=== PATIENT | female | born 1945 | race Caucasian/White ===

== ENCOUNTER → 2020-10-15 13:54 | Outpatient (BNVA) | payer MEDICARE, OTHER, SELFPAY | PROVIDERS: Visit Provider Nurse Practitioner Family | DX: I10 Essential (primary) hypertension (principal); M1A.9XX0 Chronic gout, unspecified, without tophus (tophi) | CPT/HCPCS: 80053; 80061; 82607; 84443; 84550; 85025 ==

== ENCOUNTER → 2020-11-12 14:37 | Outpatient (BNVA) | payer MEDICARE, OTHER, SELFPAY | PROVIDERS: Visit Provider Nurse Practitioner Family | DX: M1A.9XX0 Chronic gout, unspecified, without tophus (tophi) (principal) | CPT/HCPCS: 80053; 84550 ==

== ENCOUNTER → 2020-12-27 13:48 | Outpatient (BNVA) | payer MEDICARE, OTHER, SELFPAY | PROVIDERS: Visit Provider Nurse Practitioner Family | DX: I10 Essential (primary) hypertension (principal); F41.9 Anxiety disorder, unspecified; M1A.9XX0 Chronic gout, unspecified, without tophus (tophi); Z68.39 Body mass index [BMI] 39.0-39.9, adult; G47.00 Insomnia, unspecified; K21.9 Gastro-esophageal reflux disease without esophagitis; E78.5 Hyperlipidemia, unspecified | CPT/HCPCS: 80053; 80061; 82306; 82607; 83735; 84443; 84550; 85025 ==

== ENCOUNTER → 2021-01-08 14:12 | Outpatient (BNVA) | payer MEDICARE, OTHER, SELFPAY | PROVIDERS: Visit Provider Nurse Practitioner Family | DX: M17.11 Unilateral primary osteoarthritis, right knee (principal); M25.561 Pain in right knee; M25.562 Pain in left knee | CPT/HCPCS: 73562 ==

== ENCOUNTER 2021-01-16 16:49 | Emergency (ER) | payer MEDICARE, OTHER, SELFPAY ==
[2021-01-16] VITALS (9 sets, daily range): BP systolic 173–204; BP diastolic 83–145; PULSE 79–105; RESP 16–20; TEMP 36.4; O2SAT 94–98; BMI 36.0
--- NOTE | 2021-01-16 18:18 | ED_ITS ---
HPI - Fall General: Chief Complaint: Fall Stated Complaint: fell, sharp h/a prior to falling Time Seen by Provider: 01/16/21 18:18 History of Present Illness: HPI Narrative: Ms. Cherry is a 75-year-old lady with history of hypertension, hyperlipidemia, psychiatric disorder who presents emergency department due to fall and memory difficulty. She reports 2 to 3-week history of subacute onset of brain fog. She endorses difficulty with memory and thought process. She has had some trouble walking with balance issues. She has had multiple falls. Today she had a sharp headache in the right temporal region which is somewhat atypical for her. No numbness, tingling, visual disturbances, photophobia, phonophobia. She subsequently had a fall without head strike or loss of consciousness. She denies specific infectious symptoms but does have generalized symptoms. Additionally she feels more shaky than normal. Overall the course of symptoms has been worsening. The intensity is moderate to severe. She denies similar episodes in the past. Review of Systems General: Reports: 10 or more systems reviewed and unremarkable except in HPI and below PFSH ED PFSH: Medical History Anxiety Hyperlipidemia Hypertension Surgical History History of resection of rib right 12th rib removal Hx of kidney removal right kidney Family History Mother , breast; age 50 Cancer Son Diabetes Denies family history of Clotting disorder Psychiatric illness Chronic kidney disease (CKD) Stroke Social History Second hand smoke exposure: No Alcohol intake: current Caregiver/support person: Yes Lives independently: Yes Household members: significant other Marital status: / Current occupational status: retired History of recent travel: Yes Details: recently moved from [place], [place] Out of state: No Out of country: No Current gender identity: Female Special luisito needs: No Agree to transfusion: Yes Physical Exam Narrative: EXAM NARRATIVE: GENERAL/CONSTITUTIONAL -mildly ill-appearing. No acute distress. Eyes - PERRL, no conjunctival injection ENMT - Atraumatic external nose and ears. Moist mucous membranes NECK - supple. trachea midline CARDIOVASCULAR - regular rate and rhythm. RESPIRATORY -clear to auscultation bilaterally. No accessory muscle use. ABDOMEN/GI - Nontender/Nondistended. MSK - Extremities without obvious deformity or tenderness to palpation SKIN - Warm, Dry NEURO - alert and appropriately oriented. Cranial nerves II through XII intact. Coordination and gait normal. Moves all extremities equally. Course ED course: - Patient was seen and evaluated by me at bedside - Patient placed on cardiac monitors, IV access obtained - Initial evaluation notable for no acute distress, nontoxic appearance. Mildly ill. No focal neurologic deficits. - Labs notable for no significant hematologic or metabolic abnormalities to explain patient's symptoms. Delta troponin negative. - Imaging notable for negative head CT and chest x-ray - Upon serial reexamination after treatment the patient was similar - Based on patient history, evaluation, labs, and imaging as interpreted the most likely cause of the patient's condition is unclear. Onset of symptoms this rapidly is somewhat atypical of something like dementia however certainly a consideration. I recommended follow-up with PCP for further neurocognitive evaluation. Given no focal neurologic deficits and headache within [address] imaging no additional imaging or vessel imaging warranted. - The results of ED evaluation were discussed with the patient including prescriptions and/or symptomatic cares (if applicable) including appropriate and responsible use, followup plan, and return precautions. The patient verbalized understanding and felt safe for discharge. - Patient discharged in satisfactory condition. Vital Signs: Vital signs: Vital Signs Temperature 97.6 F 01/16/21 17:16 Pulse Rate 79 01/16/21 21:26 Respiratory Rate 19 H 01/16/21 21:26 Blood Pressure 194/106 01/16/21 21:26 Pulse Oximetry 96 01/16/21 21:26 MDM - Fall Medical Records: Attestation: I reviewed the patient's medical records. Lab Data: Attestation: I reviewed the patient's lab results. Labs: Lab Results 01/16/21 01/16/21 01/16/21 18:30 18:30 18:30 WBC 8.5 10^3/uL 10^3/ uL (4.0-10.0) RBC 4.52 10^6/uL 10^6 /uL (4.1-5.3) Hgb 13.0 g/dL g/dL (11.5-15.3) Hct 40.9 % % (37.0-47.0) MCV 90.5 fl fl (81-99) MCH 28.8 pg pg (28.0-34.0) MCHC 31.8 g/dL g/dL (30.0-36.0) RDW 14.8 % % (12.1-15.1) Plt Count 261 10^3/cmm 10^3 /cmm (130-400) MPV 9.6 fL fL (7.4-10.4) Neut % (Auto) 65.1 % % Lymph % (Auto) 20.9 % % Wayne % (Auto) 9.0 % % Eos % (Auto) 3.5 % % Baso % (Auto) 1.1 % % Neut # (Auto) 5.52 10^3/uL 10^3 /uL (1.8-7.7) Lymph # (Auto) 1.8 10^3/uL 10^3/ uL (0.8-4.8) Wayne # (Auto) 0.8 10^3/uL 10^3/ uL (0.2-0.9) Eos # (Auto) 0.3 10^3/uL 10^3/ uL (0.0-0.8) Baso # (Auto) 0.1 10^3/uL 10^3/ uL (0.0-0.1) Nucleated RBC % (a uto) 0 % % Nucleated RBCs # 0.0 /100WBC /100W BC Sodium 136 mmol/L mmol/L (136-145) Potassium 4.4 mmol/L mmol/L (3.5-5.1) Chloride 102 mmol/L mmol/L (98-107) Carbon Dioxide 25 mmol/L mmol/L (22-29) Anion Gap 13.4 (5-19) BUN 25 mg/dL H mg/dL (8-23) Creatinine 1.0 mg/dL H mg/dL (0.5-0.9) GFR Calculation Not Reportable Glucose 78 mg/dL mg/dL (65-115) Calculated Osmolal ity 285 mOsm/kg mOsm/ kg (285-295) Calcium 8.7 mg/dL mg/dL (8.5-10.5) Total Bilirubin 0.3 mg/dL mg/dL (0.15-1.2) AST 22 U/L U/L (0-32) ALT 13 U/L U/L (0-33) Alkaline Phosphata se 151 IU/L H IU/L (35-105) Troponin T Baselin e 16 ng/L H ng/L (0-10) Troponin T 120 Min [place] Delta Troponin T Total Protein 7.1 g/dL g/dL (6.6-8.7) Albumin 4.0 g/dL g/dL (3.5-5.2) Globulin 3.1 g/dL g/dL (1.3-4.6) TSH 1.65 uIU/mL uIU/m L (0.27-4.20) Urine Color Urine Appearance Urine pH Ur Specific Gravit y Urine Protein Urine Glucose (UA) Urine Ketones Urine Blood Urine Nitrate Urine Bilirubin Urine Urobilinogen Ur Leukocyte Caroline ase Urine RBC Urine WBC Ur Squamous Epith Cells Amorphous Sediment Urine Bacteria 01/16/21 01/16/21 19:14 20:20 WBC RBC Hgb Hct MCV MCH MCHC RDW Plt Count MPV Neut % (Auto) Lymph % (Auto) Wayne % (Auto) Eos % (Auto) Baso % (Auto) Neut # (Auto) Lymph # (Auto) Wayne # (Auto) Eos # (Auto) Baso # (Auto) Nucleated RBC % (a uto) Nucleated RBCs # Sodium Potassium Chloride Carbon Dioxide Anion Gap BUN Creatinine GFR Calculation Glucose Calculated Osmolal ity Calcium Total Bilirubin AST ALT Alkaline Phosphata se Troponin T Baselin e Troponin T 120 Min [place] 14.68 ng/L H ng/L (0-10) Delta Troponin T -1.32 ABS# L ABS# (0-10) Total Protein Albumin Globulin TSH Urine Color Straw (Yellow) Urine Appearance Clear (CLEAR) Urine pH 6 (5-7) Ur Specific Gravit y 1.010 (1.005-1.030) Urine Protein Neg (Negative) Urine Glucose (UA) Norm (Normal) Urine Ketones Negative (Negative) Urine Blood Neg (Negative) Urine Nitrate Negative (Negative) Urine Bilirubin Neg (Negative) Urine Urobilinogen Norm mg/dL mg/dL (Negative) Ur Leukocyte Caroline ase Trace H (Negative) Urine RBC None /hpf /hpf (0-2) Urine WBC None /hpf /hpf (0-5) Ur Squamous Epith Cells Rare /hpf /hpf (0-5) Amorphous Sediment Not Reportable Urine Bacteria None /hpf /hpf (NONE) EKG Data^: EKG 1: Attestation: I personally reviewed and interpreted this EKG as follows: EKG interpretation date: 01/16/21 EKG interpretation time: 18:51 Interpretation: Twelve-lead EKG shows a regular rhythm at a rate of 81. NV interval 171, QRS duration 96, QTc 398. Borderline axis. Interpretation: Sinus rhythm. Discharge Plan Discharge Patient Disposition: Home Clinical Impression: Memory changes, Hypertension, Falls, Malaise and fatigue Condition: Stable Prescriptions: No Action meloxicam 15 mg tablet 15 mg PO DAILY Qty: 14 RF: 0 atorvastatin 40 mg tablet 40 mg PO DAILY Qty: 90 RF: 1 gabapentin 300 mg capsule 300 mg PO DAILY Qty: 90 RF: 1 hydrochlorothiazide 12.5 mg tablet 12.5 mg PO QAM Qty: 90 RF: 1 lisinopril 20 mg tablet 20 mg PO DAILY Qty: 90 RF: 1 metoprolol tartrate 25 mg tablet 25 mg PO DAILY Qty: 90 RF: 1 venlafaxine 75 mg tablet extended release 24hr 75 mg PO DAILY Qty: 90 RF: 1 venlafaxine 150 mg capsule,extended release 24hr 150 mg PO DAILY Qty: 90 RF: 1 quetiapine 100 mg tablet 100 mg PO DAILY Qty: 90 RF: 1 trazodone 100 mg tablet 100 mg PO DAILY Qty: 90 RF: 1 omeprazole 40 mg capsule,delayed release(DR/EC) 40 mg PO DAILY Qty: 90 RF: 1 ergocalciferol (vitamin D2) 1,250 mcg (50,000 unit) capsule 1,250 mcg PO .weekly Qty: 4 RF: 2 allopurinol 100 mg tablet 200 mg PO DAILY Qty: 90 RF: 1 Discharge Orders: Discharge ED (Routine); Ordered 01/16/21 Ordered By: Ruy Tejeda Referrals: Sabi Beckman MD [Primary Care Provider] - Discharge Diet: Usual diet Discharge Activity: Resume usual activity Patient Instructions: Fall Prevention for Older Adults (ED), Fatigue (ED) Activity Restrictions/Additional Instructions: Thank you for visiting the emergency department. You were seen and evaluated for headache, falls, memory changes, and generalized malaise. The exact cause of your symptoms is unclear as no significant abnormality to explain your symptoms was found on imaging or labs. Please follow-up with your primary care provider. Please return the emergency department for anything that you are concerned about and feel needs emergency department evaluation. Coding Level of Care Code ED Contact Printer [employer] for Brandy George
--- NOTE | 2021-01-16 18:29 | XRR_ITS ---
PROCEDURE INFORMATION: Exam: XR Chest Exam date and time: 01/16/2021 6:29 PM Age: 75 years old Clinical indication: Other: Weakness, fatigue; Prior surgery; Surgery type: Right kidney and rib removed; Additional info: Weakness, fatigue, AMS TECHNIQUE: Imaging protocol: XR of the chest. Views: 1 view. Total images: 1 COMPARISON: No relevant prior studies available. FINDINGS: Lungs: No visible active interstitial or alveolar airspace disease. Pleural spaces: No pleural effusion. No pneumothorax. Heart/Mediastinum: Large hiatal hernia. Cardiac structures and configuration with cardiac size upper limits of normal and arteriosclerosis. Bones/joints: Unremarkable as visualized. Other findings: Obesity. XR/XR chest 1V portable [id number] IMPRESSION: Nonacute. Radiation Dose CTDIVOL = (mGy): DLP = (mGy-cm)
--- NOTE | 2021-01-16 18:29 | CTR_ITS ---
PROCEDURE INFORMATION: Exam: CT Head Without Contrast Exam date and time: 01/16/2021 6:29 PM Age: 75 years old Clinical indication: Pain; Altered mental status/memory loss; Headache; Additional info: AMS, headache TECHNIQUE: Imaging protocol: Computed tomography of the head without contrast. Total images: 202 Radiation optimization: All CT scans at this facility use at least one of these dose optimization techniques: automated exposure control; mA and/or kV adjustment per patient size (includes targeted exams where dose is matched to clinical indication); or iterative reconstruction. COMPARISON: No relevant prior studies available. RADIATION DOSE METRICS: Total DLP (mGy-cm): 899.38 FINDINGS: Brain: No evidence of active or acute intracranial pathologic process, hemorrhage, or trauma. Moderate small vessel ischemic disease with senile periventricular leukomalacia. No hyperdense MCA or insular ribbon sign. No mass effect. No midline shift. Atrophic changes not inconsistent with the patient's chronological age. Cerebral arteriosclerosis. Cerebral ventricles: No ventriculomegaly. Paranasal sinuses: Visualized sinuses are unremarkable. No fluid levels. Mastoid air cells: Visualized mastoid air cells are well aerated. Bones/joints: Unremarkable. No acute fracture. Soft tissues: Unremarkable. CT/CT head wo con* [id number] IMPRESSION: No evidence of active or acute intracranial pathologic process, hemorrhage, or trauma. Radiation Dose CTDIVOL = (mGy): DLP = 899.38 (mGy-cm)
--- NOTE | 2021-01-16 18:30 | ECG_ITS ---
[facility] Test Date: 2021-01-16 Pat Name: Abby Cherry Department: Room: Gender: Female Mandrel Maker: : 1945 Requested By: Ruy Tejeda Order Number: [id number] Karlos MD: Seven Hawkins M.D. Measurements Intervals [place] Rate: 81 P: 11 MS: 171 QRS: 99 QRSD: 96 T: 52 QT: 361 QTc: 419 Interpretive Statements SINUS RHYTHM BORDERLINE RIGHT AXIS DEVIATION [QRS AXIS > 90] PATTERN CONSISTENT WITH PULMONARY DISEASE No previous ECG available for comparison Electronically Signed On 01-17-2021 18:38:25 CDT by Seven Hawkins M.D. [id number]
[2021-01-16 18:37] LABS: Basophils # 0.1 10^3/uL (0.0-0.1); Basophils % 1.1 %; Eosinophils # 0.3 10^3/uL (0.0-0.8); Eosinophils % 3.5 %; Hematocrit 40.9 % (37.0-47.0); Lymphocytes # 1.8 10^3/uL (0.8-4.8); Lymphocytes % 20.9 %; Mean Corpuscular HGB Conc 31.8 g/dL (30.0-36.0); Mean Corpuscular Hemoglobin 28.8 pg (28.0-34.0); Mean Corpuscular Volume 90.5 fl (81-99); Mean Platelet Volume 9.6 fL (7.4-10.4); Monocytes # 0.8 10^3/uL (0.2-0.9); Neutrophils # 5.52 10^3/uL (1.8-7.7); Neutrophils % 65.1 %; Nucleated Red Blood Cells % 0 %; Platelet Count 261 10^3/cmm (130-400); Red Blood Count 4.52 10^6/uL (4.1-5.3); Red Cell Distribution Width 14.8 % (12.1-15.1); White Blood Count 8.5 10^3/uL (4.0-10.0)
[2021-01-16 19:17] LABS: Troponin(5th) Baseline 16 ng/L (0-10)
[2021-01-16 19:25] LABS: Alanine Aminotransferase 13 U/L (0-33); Alkaline Phosphatase 151 IU/L (35-105); Blood Urea Nitrogen 25 mg/dL (8-23); Calcium 8.7 mg/dL (8.5-10.5); Carbon Dioxide 25 mmol/L (22-29); Chloride 102 mmol/L (98-107); Globulin 3.1 g/dL (1.3-4.6); Glucose 78 mg/dL (65-115); Osmolality Calculated 285 mOsm/kg (285-295); Sodium 136 mmol/L (136-145); Thyroid Stimulating Hormone 1.65 uIU/mL (0.27-4.20); Total Bilirubin 0.3 mg/dL (0.15-1.2); Total Protein 7.1 g/dL (6.6-8.7)
[2021-01-16 19:26] LABS: Anion Gap 13.4 (5-19); Aspartate Amino Transferase 22 U/L (0-32); Potassium 4.4 mmol/L (3.5-5.1)
[2021-01-16 19:58] LABS: Add Urine Microscopic? YES; Bilirubin Urine Neg (Negative); Blood Urine Neg (Negative); Glucose Urine UA Norm (Normal); Ketones Urine Negative (Negative); Leukocyte Esterase Urine Trace (Negative); Nitrate Urine Negative (Negative); Protein Urine Neg (Negative); Squamous Epithelial Cell Urine RARE /hpf (0-5); Urine Appearance Clear (CLEAR); Urine Color Straw (Yellow); Urobilinogen Urine Norm (Negative); pH Urine 6 (5-7)
[2021-01-16] MEDS: lisinopril 10 mg Tablet 20 MG PO (20:17)
[2021-01-16] MEDS: acetaminophen 500 mg Tablet 1000 MG PO (20:55)
[2021-01-16 20:58] LABS: Troponin 5 2HR 14.68 ng/L (0-10)
[2021-01-16 20:59] LABS: Troponin 5 2HR Delta -1.32 ABS# (0-10)
== END 2021-01-16 21:27 | disposition home or self-care (01) ==
PROVIDERS: Emergency Provider Emergency Medicine; PCP Family Medicine
DX: R53.81 Other malaise (principal); R53.83 Other fatigue; I10 Essential (primary) hypertension; R29.6 Repeated falls; R41.3 Other amnesia; E78.5 Hyperlipidemia, unspecified; Z90.5 Acquired absence of kidney
CPT/HCPCS: 36415; 70450; 71045; 80053; 81001; 84443; 84484; 85025; 93005; 99284

== ENCOUNTER 2021-01-27 06:23 | Observation (INO) | payer MEDICARE, OTHER, SELFPAY ==
[2021-01-27] VITALS (14 sets, daily range): BP systolic 110–187; BP diastolic 66–104; PULSE 0–86; RESP 16–18; TEMP 36.4–36.8; O2SAT 92–95; BMI 39.4; BMI 41.1
--- NOTE | 2021-01-27 07:17 | XR_ITS ---
WS: [id number] PORTABLE CHEST HISTORY: dyspnea/cough COMPARISON: 01/16/2021 Minimal areas of atelectasis at the lung bases. No pneumonia. Normal pulmonary vasculature. No pleura l effusion or pneumothorax. Cardiac size: Normal. Mediastinum/Aorta: Mild atherosclerosis aorta. Large hiatal hernia. Mild osteopenia with degenerative changes at the shoulder joints. XR/XR chest 1V portable [id number] IMPRESSION: 1. Mild atherosclerosis aorta. 2. Very minimal subsegmental atelectasis at the lung bases. 3. Large hiatal hernia.
--- NOTE | 2021-01-27 07:18 | W.ED.GENADLT ---
HPI - General Adult General: Chief complaint: General Medical Stated complaint: possible TIA, high BP Time Seen by Provider: 01/27/21 06:29 History of Present Illness: HPI narrative: 75-year-old female presents emergency room complaining of generally not feeling well. She states she woke up earlier this morning and her left forearm was numb, word finding difficulty.. Her blood pressure is elevated. She has a history of a previous right nephrectomy. She has a history of hypertension as well. She has not taken her morning blood pressure medications no other recent medication changes states that she has been coughing a little bit short of breath lately. She denies any chest pain at this time. Currently she has no numbness in her arm. She never had any difficulty with speech or swallowing. For the last 4 months she has not been able to walk normally has severe weakness in her legs and is only able to transfer. Onset (ago): unknown Location: left and upper extremity Severity: mild Relieving factors: none Associated symptoms: Deny chest pain, confusion, cough, diaphoresis, decreased appetite, dyspnea, fevers/chills, headache(s), malaise, nausea, rash, palpitations, seizures, short of breath, syncope, vomiting or weakness Treatments prior to arrival: none Review of Systems Const: Denies: malaise or diaphoresis ENMT: Denies: throat pain, ear or mastoid pain, nasal discharge or nasal congestion Card: Denies: chest pain, palpitations or syncope Resp: Denies: dyspnea GI: Denies: nausea or vomiting : Denies: flank pain, difficulty voiding, dysuria, urinary frequency or urinary urgency Skin/Breast: Denies: rash Neuro: Denies: headache(s) or confusion PFSH ED PFSH: Medical History Anxiety Hyperlipidemia Hypertension Obesity Surgical History History of resection of rib right 12th rib removal Hx of kidney removal right kidney Family History Mother , breast; age 50 Cancer Son Diabetes Denies family history of Clotting disorder Psychiatric illness Chronic kidney disease (CKD) Stroke Social History (Reviewed 01/31/21 @ 06:49 by SERGEI Gutierrez Second hand smoke exposure: No Alcohol intake: current Caregiver/support person: Yes Lives independently: Yes Household members: significant other Marital status: / Current occupational status: retired History of recent travel: Yes Details: recently moved from [place], [place] Out of state: No Out of country: No Current gender identity: Female Special luisito needs: No Agree to transfusion: Yes Physical Exam Const: COMMON NORMALS: no acute distress GENERAL APPEARANCE: cooperative and comfortable ORIENTATION/CONSCIOUSNESS: Yes awake, Yes oriented to person, Yes oriented to place and Yes oriented to time HENMT: COMMON NORMALS: normocephalic, atraumatic, hearing grossly normal bilaterally, external ears normal, EAC's normal, TM's normal bilaterally, Normal nasal mucous membranes and turbinates present, moist oral mucous membranes and oropharynx normal HEAD & SCALP: normocephalic and atraumatic NOSE: Normal nasal mucous membranes and turbinates present EXTERNAL EAR: Yes external ears normal EXTERNAL AUDITORY CANAL: EAC's normal TYMPANIC MEMBRANE: TM's normal bilaterally Eye: COMMON NORMALS: Equal, round and reactive pupils present, EOMs intact bilaterally, conjunctivae normal and no scleral icterus CONJUNCTIVA: Yes conjunctivae normal PUPIL: Yes Equal, round and reactive pupils present OTHER: Patient does seem to have some loss of field of vision bilaterally. However it is inconsistent on exam and at times even when the object is directly in front of her she will states she cannot see it but at the same distance she is able to count number of fingers shown to her accurately. Neck/C-Spine: COMMON NORMALS: no JVD Resp: COMMON NORMALS: normal respiratory effort, No retractions, No use of accessory muscles and clear to auscultation bilaterally AUSCULTATION: clear to auscultation bilaterally Cardio: COMMON NORMALS: no JVD, regular rate, regular rhythm and No murmurs present (Cardio) RATE: regular rate RHYTHM: regular rhythm GI: COMMON NORMALS: Soft to palpation and No hepatosplenomegaly present AUSCULTATION: Yes normoactive bowel sounds PALPATION: Yes Soft to palpation, No Tenderness to palpation present (GI), No Guarding due to palpation present (GI) and Yes No hepatosplenomegaly present Extremity: COMMON NORMALS: normal to inspection, capillary refill normal, no clubbing, cyanosis or edema, no calf tenderness and no pedal edema Neuro: SENSORIUM/ORIENTATION: Yes oriented to person, Yes oriented to place and Yes oriented to time Skin: COMMON NORMALS: no rashes or lesions noted GENERAL SKIN EXAM: no rashes or lesions noted Course ED course: Discussed with hospitalist. Patient has no lacunar infarct in the internal capsule. Neurologic exam does not show anything acute the visual field deficits do not seem consistent in the note think these are necessarily involved given the location of the area of concern on imaging. Discussed with hospitalist will go ahead and admit evaluate for potential causes and interventions. Labs and imaging reviewed as found on the chart. EKG reviewed as well. No acute changes. Vital Signs: Vital signs: Vital Signs Temperature 97.7 F 01/28/21 13:38 Pulse Rate 87 01/28/21 13:38 Respiratory Rate 18 01/28/21 13:38 Blood Pressure 121/73 01/28/21 13:38 Pulse Oximetry 92 01/28/21 13:38 [facility] - General Adult Lab Data: Labs: Lab Results 01/27/21 01/27/21 01/27/21 08:25 08:25 08:25 WBC 8.8 10^3/uL 10^3/ uL (4.0-10.0) RBC 4.64 10^6/uL 10^6 /uL (4.1-5.3) Hgb 13.5 g/dL g/dL (11.5-15.3) Hct 43.9 % % (37.0-47.0) MCV 94.6 fl fl (81-99) MCH 29.1 pg pg (28.0-34.0) MCHC 30.8 g/dL g/dL (30.0-36.0) RDW 14.8 % % (12.1-15.1) Plt Count 316 10^3/cmm 10^3 /cmm (130-400) MPV 9.4 fL fL (7.4-10.4) Neut % (Auto) 70.8 % % Lymph % (Auto) 16.6 % % Child[place] % (Auto) 7.6 % % Eos % (Auto) 3.3 % % Baso % (Auto) 1.0 % % Neut # (Auto) 6.21 10^3/uL 10^3 /uL (1.8-7.7) Lymph # (Auto) 1.5 10^3/uL 10^3/ uL (0.8-4.8) Childress # (Auto) 0.7 10^3/uL 10^3/ uL (0.2-0.9) Eos # (Auto) 0.3 10^3/uL 10^3/ uL (0.0-0.8) Baso # (Auto) 0.1 10^3/uL 10^3/ uL (0.0-0.1) Nucleated RBC % (a uto) 0 % % Nucleated RBCs # 0.0 /100WBC /100W BC Sodium 140 mmol/L mmol/L (136-145) Potassium 4.9 mmol/L mmol/L (3.5-5.1) Chloride 104 mmol/L mmol/L (98-107) Carbon Dioxide 24 mmol/L mmol/L (22-29) Anion Gap 16.9 (5-19) BUN 18 mg/dL mg/dL (8-23) Creatinine 1.1 mg/dL H mg/dL (0.5-0.9) GFR Calculation Not Reportable Glucose 110 mg/dL mg/dL (65-115) Calculated Osmolal ity 293 mOsm/kg mOsm/ kg (285-295) Calcium 9.8 mg/dL mg/dL (8.5-10.5) Vitamin B12 874 pg/mL pg/mL (232-1245) Discharge Plan Discharge Patient Disposition: Admitted As Inpatient Admit Provider: Caesar Rosenbaum Clinical Impression: CVA (cerebral vascular accident), Bilateral knee pain, Recurrent falls, Hypertension, GERD (gastroesophageal reflux disease) Condition: Stable Discharge Diet: Cardiac Discharge Activity: Increase activity as tolerated Coding Level of Care Code ED Continuous [employer] Supervisor for Brandy George NIH stroke score NIHSS Level Of Consciousness - 1a: 0 Level Of Consciousness Questions - 1b: Both Correct Level Of Consciousness Commands - 1c: Both Correct Best Gaze - 2: Normal Visual Cardoza - 3: No Visual Loss Facial Palsy - 4: Normal Motor Arm Right - 5: No Drift Motor Arm Left - 5: No Drift Motor Leg Right - 6: No Drift Motor Leg Left - 6: No Drift Limb Ataxia - 7: Absent Sensory - 8: Normal Best Language - 9: No Aphasia Dysarthia - 10: Normal Extinction And Inattention - 11: 0 Score Total Score: 0
[2021-01-27] MEDS: lisinopril 20 mg Tablet PO ×2 (07:24→20:41)
[2021-01-27] MEDS: hydroCHLOROthiazide 25 mg Tablet 12.5 MG PO ×2 (07:24→20:40)
[2021-01-27] MEDS: metoprolol succinate ER (24 HR) 25 mg Tablet PO (07:24)
--- NOTE | 2021-01-27 07:26 | PC.NURSE ---
Assumed care of pt at this time from Henny YAN.
[2021-01-27] MEDS: metoprolol tartrate 1 mg/1 mL SDV 5 mL 2.5 MG IVP (07:30)
--- NOTE | 2021-01-27 07:54 | PC.NURSE ---
ERP aware of pt's NIHSS score and that pt is complaining of left sided decreased sensation of her arm and leg. No new orders rec'd.
[2021-01-27 08:37] LABS: Basophils # 0.1 10^3/uL (0.0-0.1); Eosinophils # 0.3 10^3/uL (0.0-0.8); Eosinophils % 3.3 %; Hematocrit 43.9 % (37.0-47.0); Hemoglobin 13.5 g/dL (11.5-15.3); Lymphocytes # 1.5 10^3/uL (0.8-4.8); Lymphocytes % 16.6 %; Mean Corpuscular HGB Conc 30.8 g/dL (30.0-36.0); Mean Corpuscular Hemoglobin 29.1 pg (28.0-34.0); Mean Corpuscular Volume 94.6 fl (81-99); Mean Platelet Volume 9.4 fL (7.4-10.4); Monocytes # 0.7 10^3/uL (0.2-0.9); Monocytes % 7.6 %; Neutrophils # 6.21 10^3/uL (1.8-7.7); Neutrophils % 70.8 %; Nucleated Red Blood Cells % 0 %; Platelet Count 316 10^3/cmm (130-400); Red Blood Count 4.64 10^6/uL (4.1-5.3); Red Cell Distribution Width 14.8 % (12.1-15.1); White Blood Count 8.8 10^3/uL (4.0-10.0)
--- NOTE | 2021-01-27 08:46 | CT_ITS ---
WS: [id number] CT HEAD NONCONTRAST HISTORY: left arm numbness TECHNIQUE: Contiguous axial imaging performed through the brain in 2.5 mm imaging. Bone and soft tiss ue windows. Sagittal and coronal reformats reviewed. All CT scans at [facility] use at least one of these dose optimization techniques: automated exposure control; mA and/or kV adjustment per pa tient size (includes targeted exams where dose is matched to clinical indication); or iterative recon struction. DLP: 924.99 mGy.cm COMPARISON: 01/16/2021 No acute intracranial hemorrhage, midline shift or mass effect. Moderate atrophy. Subacute infarct is suspected involving the anterior limb of the RIGHT internal cap frandy. There is an area of decreased attenuation which has progressed since the prior study of 021. No acute hemorrhage. Additional ischemic changes and lacunar infarcts in the white matter. Ventricles: Normal size with no hydrocephalus. No inferior displacement of the cerebellar tonsils. Paranasal sinuses: As visualized are clear. Mastoid air cells: Well pneumatized. Calvarium and scalp: Skull is intact with no soft tissue edema or swelling. Extensive atherosclerosis within the intracranial carotid arteries. CT/CT head wo con* [id number] IMPRESSION: 1. No acute intracranial hemorrhage or edema. 2. Subacute lacunar infarct anterior limb of the RIGHT internal capsule. Progr essed and more obvious as compared to 01/16/2021. 3. There is additional atrophy and chronic ischemic disease and lacunar infarc ts which are stable.
[2021-01-27 09:05] LABS: Anion Gap 16.9 (5-19); Blood Urea Nitrogen 18 mg/dL (8-23); Calcium 9.8 mg/dL (8.5-10.5); Carbon Dioxide 24 mmol/L (22-29); Chloride 104 mmol/L (98-107); Glucose 110 mg/dL (65-115); Osmolality Calculated 293 mOsm/kg (285-295); Potassium 4.9 mmol/L (3.5-5.1); Sodium 140 mmol/L (136-145)
--- NOTE | 2021-01-27 09:13 | PC.NURSE ---
Pt taken to CT at this time.
--- NOTE | 2021-01-27 09:55 | PC.NURSE ---
Pt complaining of black spots in her vision in her left eye. ERP notified. No verbal orders given to nurse at this time.
--- NOTE | 2021-01-27 11:04 | PC.NURSE ---
Pt reports no change in condition.
--- NOTE | 2021-01-27 11:15 | MR_ITS ---
WS: [id number] MRI BRAIN WITH AND WITHOUT CONTRAST HISTORY: acute CVA COMPARISON: CT head 01/27/2021 and 01/16/2021 TECHNIQUE: Multiplanar imaging performed through the brain with MultiHance 20 ml's IV. No acute infarcts are seen. Bush-white matter differentiation is well preserved. Extensive confluent and patchy chronic microvascular ischemic white matter changes. No associated hemorrhage. No acute di ffusion-weighted abnormality. Increased signal in the bowen bilaterally. Ventricles and extra-axial spaces are normal. Empty sella turcica. Postcontrast images are negative for masses or vascular malformations. Postcontrast sequences are welch ited by motion artifact. There is significant motion artifact on the postcontrast images. Dural venous sinuses are normal. Paranasal sinuses: Well aerated with no significant disease. Mastoid air cells: Normal. Calvarium and scalp: Normal. MR/MR head wo/w con [id number] IMPRESSION: 1. No acute infarct identified. No hemorrhage. 2. Postcontrast imaging is significantly limited by motion artifact. No large enhancing masses. 3. Severe bilateral diffuse chronic microvascular ischemic disease within the supratentorial white matter and also within the bowen bilaterally.
--- NOTE | 2021-01-27 11:23 | P.HP_ITS ---
Providers/Chief Complaint Primary Care Provider: Sabi Beckman MD Chief Complaint: possible TIA, high BP History of Present Illness Abby Cherry is a 75 year old female who presented to the emergency department with concerns of difficulty finding the correct word to use, frequent falls over the last week. This morning her left forearm was numb. Significant other is with her as well and reports she has had memory problems for a little bit longer. Patient reports she just cannot seem to pick her feet up and has trouble with her strength. She denies any loss of sensation. She reports she does have significant arthritis which impairs her as well. She has been using a wheelchair a lot lately secondary to her decrease in mobility. She has not had any fevers. No difficulty swallowing. Was seen in the emergency department on January 16with complaint of brain fog for 2 to 3 weeks with memory difficulties and falling. She reports no major injury with falls, and believes she is fallen about 3 times in the last week. No headache. The emergency department physician is worried regarding her vision. Review of Systems General: Reports: 10 or more systems reviewed and unremarkable except in HPI and below Const: Denies: fever(s) Eyes: Reports: change in vision ENMT: Denies: throat pain Card: Denies: chest pain Resp: Denies: dyspnea GI: Denies: abdominal pain : Denies: flank pain Musc: Denies: neck pain Skin/Breast: Denies: rash Neuro: Reports: numbness in extremities, weakness in extremities, difficulty walking and frequent falls; Denies: headache(s) Psych: Reports: anxiety and depression Endo: Denies: polyuria Vito/Lymph: Denies: easy bruising All/Imm: Denies: urticaria Medications/Allergies Home Medications Medication Instructions Recorded Confirmed Last Taken Type atorvastatin 40 mg tablet 40 mg PO DAILY #90 tab 12/27/20 01/08/21 Unknown Rx gabapentin 300 mg capsule 300 mg PO DAILY #90 cap 12/27/20 01/08/21 Unknown Rx hydrochlorothiazide 12.5 mg tablet 12.5 mg PO QAM #90 tab 12/27/20 01/08/21 Unknown Rx lisinopril 20 mg tablet 20 mg PO DAILY #90 tab 12/27/20 01/08/21 Unknown Rx metoprolol tartrate 25 mg tablet 25 mg PO DAILY #90 tab 12/27/20 01/08/21 Unknown Rx omeprazole 40 mg capsule,delayed 40 mg PO DAILY #90 cap 12/27/20 01/08/21 Unknown Rx release quetiapine 100 mg tablet 100 mg PO DAILY #90 tab 12/27/20 01/08/21 Unknown Rx trazodone 100 mg tablet 100 mg PO DAILY #90 tab 12/27/20 01/08/21 Unknown Rx venlafaxine 150 mg 150 mg PO DAILY #90 cap 12/27/20 01/08/21 Unknown Rx capsule,extended release 24 hr venlafaxine 75 mg tablet,extended 75 mg PO DAILY #90 tab 12/27/20 01/08/21 Unknown Rx release 24 hr allopurinol 100 mg tablet 200 mg PO DAILY #90 tab 01/01/21 01/08/21 Unknown Rx ergocalciferol (vitamin D2) 1,250 1,250 mcg PO .weekly #4 cap 01/01/21 01/08/21 Unknown Rx mcg (50,000 unit) capsule diclofenac sodium 1 % topical gel 4 g TOPICAL QID #100 g 01/23/21 Unknown Rx meloxicam 15 mg tablet See Rx Instructions .ROUTE 01/23/21 Unknown Rx .COMPLEX #14 tab Allergies Allergy/AdvReac Type Severity Reaction Status Date / Time Sulfa (Sulfonamide Allergy ADR-Gastrointestinal Verified 01/08/21 13:29 Antibiotics) Upset PFSH Acute PFSH: Medical History (Updated 01/27/21 @ 11:38 by Caesar Rosenbaum MD) Anxiety Hyperlipidemia Hypertension Obesity Surgical History History of resection of rib right 12th rib removal Hx of kidney removal right kidney Family History Mother , breast; age 50 Cancer Son Diabetes Denies family history of Clotting disorder Psychiatric illness Chronic kidney disease (CKD) Stroke Social History Second hand smoke exposure: No Alcohol intake: current Caregiver/support person: Yes Lives independently: Yes Household members: significant other Marital status: / Current occupational status: retired History of recent travel: Yes Details: recently moved from [place], [place] Out of state: No Out of country: No Current gender identity: Female Special luisito needs: No Agree to transfusion: Yes Vitals/I&O/Wt Last Vital Signs Temp 97.8 F 01/27/21 06:25 Pulse 77 01/27/21 11:03 Resp 18 01/27/21 11:03 BP 173/94 01/27/21 11:03 Pulse Ox 94 01/27/21 11:03 Weight last 48 hrs Weight 104.326 kg Physical Exam Narrative: EXAM NARRATIVE: General exam is a white female, who appears to have some word finding difficulties but when discussing something familiar with her it appears to resolve. Skin no rash Neuro: I cannot elicit any focal deficits. No obvious cerebellar function. Sensation to lower extremities appeared intact. I agree with the emergency department assessment of 0 on NIH score. HEENT: Atraumatic and normocephalic. Pupils equally round. Difficulty getting her to participate adequately in peripheral vision evaluation, but when refocu sed she seems to be able to count fingers and not have any deficits. Neck is supple no lymphadenopathy or thyromegaly Cardiovascular regular rate and rhythm without murmur Lungs clear no wheezing or crackles Abdomen is soft, positive bowel sounds. No obvious organomegaly. exam is deferred Extremities no cyanosis clubbing or edema, cap refill brisk Data : 01/27/21 08:25 01/27/21 08:25 Other data: Recent LFTs done on January 16 normal. Alk phos slightly elevated at 151. TSH recently done normal. Recent normal urinalysis. CT head subacute CVA anterior limb right internal capsule, noted on previous exam but not as obvious. Chronic ischemic disease/lacunar infarcts are also noted. Chest x-ray hiatal hernia, atherosclerotic disease, no infiltrate Previous EKG normal sinus rhythm, borderline right axis deviation, no acute changes A&P Assessment and plan (1) CVA (cerebral vascular accident): Lacunar infarct, internal capsule Neurologic exam not consistent Check carotid ultrasound, echocardiogram, MRI with and without contrast Telemetry Aspirin, statin Secondary to substrate of other lacunar infarcts may need better blood pressure control At this point she is much over 2 days from her initial event and permissive hypertension is not needed. Continue her blood pressure medication and adjust as needed PT/OT/ST consults Status: Acute (2) Recurrent falls: May be related to lacunar infarct MRI of head will hopefully delineate if there are other concerns. Therapy consultations as noted No evidence on exam of diminished sensation to lower extremities. Proprioception appears intact. No saddle paresthesia. Status: Acute (3) Memory changes: TSH recently normal Check B12 Status: Acute (4) Hypertension: Continue home medications Status: Acute (5) Hyperlipidemia: Continue statin. Increase to 80 mg Status: Acute Qualifiers: Hyperlipidemia type: unspecified Qualified Code(s): E78.5 - Hyperlipidemia, unspecified (6) GERD (gastroesophageal reflux disease): Discontinue anti-inflammatories Continue proton pump inhibitor Status: Acute Qualifiers: Esophagitis presence: esophagitis presence not specified Qualified Code(s): K21.9 - Gastro-esophageal reflux disease without esophagitis (7) Anxiety: Continue chronic medications Status: Acute Additional A&P Information Full code Lovenox for DVT prophylaxis Attestations Medical Necessity Statement*: Will need less than 2 midnight stay for evaluation and treatment of CVA, subacute Time Spent in Patient Care: Greater than 35 minutes Coding Level of Care Code Acute [employer] Operator for [facility] Fwd Diagnoses CVA (cerebral vascular accident) I63.9 Recurrent falls R29.6 Memory changes R41.3 Hypertension I10 Hyperlipidemia E78.5 Hyperlipidemia type: unspecified GERD (gastroesophageal reflux disease) K21.9 Esophagitis presence: esophagitis presence not specified Anxiety F41.9
--- NOTE | 2021-01-27 12:23 | PC.PHAR ---
PT STATES SHE TAKES CARE OF HER OWN MEDICATIONS-PT BROUGHT IN MEDICATION BOTTLES-NOTES ARE MADE IN THE PHARMACY COMMENTS-PT BROUGHT IN MED BOTTLE THAT HAS ALLOPURINOL 100MG DAILY RX FILLED ON 01/23/21 90D/S PT STATES SHE TAKES 200MG HS RX WRITTEN ON 01/01/21 FOR 200MG HS-PT STATES SHE HASNT STARTED TAKING THE VITAMIN D2 ONCE A WEEK RX FILLED ON 01/01/21 28D/S-PT STATES SHE TAKES 10MG LAST FILLED 10/21/20 90D/S AND 20MG LAST FILLED 12/25/20 90D/S OF LISINOPRIL-PT STATES SHE TAKES TRAZODONE 50MG FILLED ON 12/25/20 30D/S AND 100MG LAST FILLED 12/27/20 30D/S-PT STATES SHE TAKES QUETIAPINE 25MG FILLED ON 12/25/20 AND 100MG FILLED ON 12/27/20 30D/S
[2021-01-27] MEDS: acetaminophen 500 mg Tablet 1000 MG PO (13:32)
[2021-01-27 15:11] LABS: Vitamin B12 874 pg/mL (232-1245)
[2021-01-27] MEDS: enoxaparin 40 mg/0.4 mL Syringe SUBCUT (15:38)
[2021-01-27] MEDS: quetiapine 100 mg Tablet PO (20:40)
[2021-01-27] MEDS: pantoprazole DR 40 mg Tablet PO (20:40)
[2021-01-27] MEDS: venlafaxine ER (24HR) 150 mg Capsule PO (20:40)
[2021-01-27] MEDS: gabapentin 300 mg Capsule PO (20:40)
[2021-01-27] MEDS: metoprolol tartrate 25 mg Tablet PO (20:40)
[2021-01-27] MEDS: venlafaxine ER (24HR) 75 mg Capsule PO (20:40)
[2021-01-27] MEDS: quetiapine 25 mg Tablet PO (20:41)
[2021-01-28 03:54] VITALS: BP 107/68; PULSE 73; RESP 16; TEMP 36.9; O2SAT 93
--- NOTE | 2021-01-28 06:00 | USCV_ITS ---
Abby Cherry Age: 75 Gender: F : 1945 Exam Date: 01/28/2021 06:41 Ordering Phys: Dionisio Muro DO Technologist: Exam Location: [facility] – [place] Indication: TIA BP: 134 / 74 HR: 76 Rhythm: Sinus Technical Quality: Adequate MEASUREMENTS (Male / Female) Normal Values 2D ECHO LV Diastolic Diameter PLAX 2.6 cm 4.2 - 5.9 / 3.9 - 5.3 cm LV Systolic Diameter PLAX 1.8 cm IVS Diastolic Thickness 0.9 cm 0.6 - 1.0 / 0.6 - 0.9 cm IVS Systolic Thickness 1.1 cm LVPW Diastolic Thickness 0.9 cm 0.6 - 1.0 / 0.6 - 0.9 cm LVPW Systolic Thickness 0.9 cm LVOT Diameter 2.0 cm LV Ejection Fraction 2D Teich 62.9 % LV Ejection Fraction MOD 2C 68.0 % LV Ejection Fraction 2C AL 67.9 % LA Diameter 2.7 cm LA Width 3.6 cm LA Height 4.8 cm RA Width 4.4 cm RA Height 4.9 cm Aorta at Sinotubular Diameter 2.4 cm DOPPLER AV Peak Velocity 132.0 cm/s LVOT Peak Velocity 96.0 cm/s AV Area Cont Eq vti 2.0 cm squared AV Area Cont Eq pk 2.2 cm squared MV Area PHT 5.0 cm squared Mitral E to A Ratio 0.6 MV E' Velocity 31.0 cm/s Mitral E to MV E' Ratio 8.0 Mitral E to LV E' Lateral Ratio 6.9 Mitral E to LV E' Septal Ratio 9.6 TR Peak Velocity 153.3 cm/s TR Peak Gradient 9.4 mmHg TV Peak E Velocity 61.0 cm/s Right Atrial Pressure 3.0 mmHg Pulmonary Artery Systolic Pressu 12.4 mmHg FINDINGS Left Ventricle Normal left ventricular size and systolic function, EF 62 %. Grade I/IV diastolic dysfunction (abnormal relaxation filling pattern), normal to mildly elevated filling pressures. Right Ventricle The right ventricle is normal in size and function. Right Atrium The right atrium is normal in size. Left Atrium The left atrium is normal in size. Mitral Valve Thickened mitral valve. Moderate mitral annular calcification. Aortic Valve Thickened aortic valve. Tricuspid Valve Trace tricuspid valve regurgitation. Pulmonic Valve Pulmonic valve not well visualized. Pericardium Normal pericardium without effusion. Aorta Normal ascending aorta dimension. CONCLUSIONS Normal left ventricular size and systolic function, EF 62 %. Grade I/IV diastolic dysfunction (abnormal relaxation filling pattern), normal to mildly elevated filling pressures. Thickened mitral valve. Moderate mitral annular calcification. Thickened aortic valve. Trace tricuspid valve regurgitation. Possibly normal PA pressure Technically difficult study because of the poor ultrasonic window. Dr Jennifer Patel MD FAC (Electronically Signed) Final Date: 28 January 2021 11:05 S
--- NOTE | 2021-01-28 06:00 | USCV_ITS ---
Abby Cherry Age: 75 Gender: F : 1945 Exam Date: 01/28/2021 06:54 Ordering Phys: Dionisio Muro DO Technologist: Exam Location: [facility] [place] Indication: TIA Risk Factors: Previous Vascular Surgery: Right Brachial BP: / Left Brachial BP: / Right Left Velocity (cm/s) Spectral Plaque Velocity (cm/s) Spectral Plaque Syst/Diast Broadening Syst/Diast Broadening 48.90/ 7.00 Prox CCA 55.20 / 9.30 41.90/ 9.30 Mid CCA 68.40 / 14.00 66.80/ 12.40 Hetro Distal CCA 80.00 / 16.30 Hetro 58.30/ 10.90 Hetro Prox ICA 82.30 / 12.40 Hetro 49.70/ 14.00 Hetro Mid ICA 76.90 / 19.40 Hetro 61.40/ 14.80 Distal ICA 76.90 / 21.80 55.90 ECA 80.80 0.92 ICA/CCA 1.03 Antegrade Vertebral Antegrade 18.40/ 4.30 cm/s 31.00/ 6.40 cm/s Tri Subclavian Tri 126.8 0 FINDINGS Mild to moderate dense plaques in the bifurcations bilaterally Intimal thickening in the common carotid arteries bilaterally. Antegrade flow in the vertebral arteries bilaterally. Normal Doppler flow velocities in the external, vertebral and subclavian arteries bilaterally CONCLUSIONS Mild to moderate dense plaques in the bifurcations bilaterally with the Doppler features consistent with less than 50% stenosis Intimal thickening in the common carotid arteries bilaterally. No significant stenosis in the extracranial arteries, based on the above findings Dr Jennifer Patel MD [facility] (Electronically Signed) Final Date: 28 January 2021 11:08 S
[2021-01-28 07:17] LABS: Cholesterol 128 mg/dL (0-200); HDL Cholesterol 40 mg/dL (60-100); LDL Cholesterol Calculated 54 mg/dL (50-129); LDL HDL Ratio 1.35 RATIO (0.00-3.22); Triglycerides 169 mg/dL (0-150)
[2021-01-28 07:21] VITALS: BP 118/77; PULSE 75; RESP 16; TEMP 36.9; O2SAT 94
[2021-01-28] MEDS: aspirin 325 mg Tablet PO (07:29)
[2021-01-28] MEDS: atorvastatin 40 mg Tablet 80 MG PO (07:29)
[2021-01-28] MEDS: allopurinol 100 mg Tablet 200 MG PO (07:29)
[2021-01-28 09:16] VITALS: PULSE 84; O2SAT 92
[2021-01-28 11:08] VITALS: BP 121/73; PULSE 87; RESP 18; TEMP 36.5; O2SAT 92
--- NOTE | 2021-01-28 11:53 | P.DS_ITS ---
Discharge Providers Date of Admission: 01/27/21 11:15 Date of Discharge: January 28, 2021 Attending Provider at Admission: Caesar Rosenbaum MD Attending Provider at Discharge: Caesar Rosenbaum MD Primary Care Provider: Sabi Beckman MD Diagnoses at Discharge Discharge Diagnosis (1) CVA (cerebral vascular accident): Status: Acute (2) Recurrent falls: Status: Acute (3) Memory changes: Status: Acute (4) Hypertension: Status: Acute (5) Hyperlipidemia: Status: Acute Qualifiers: Hyperlipidemia type: unspecified Qualified Code(s): E78.5 - Hyperlipidemia, unspecified (6) GERD (gastroesophageal reflux disease): Status: Acute Qualifiers: Esophagitis presence: esophagitis presence not specified Qualified Code(s): K21.9 - Gastro-esophageal reflux disease without esophagitis (7) Anxiety: Status: Acute Reason for Visit Reason for Visit: possible TIA, high BP Hospital Course Hospital Course Abby is a 75-year-old white female who presented to the hospital with concer ns of arm numbness, difficulty finding words. She had had some memory changes lately, and some difficulty with her legs as well as frequent falls. It was hard to determine whether this was secondary to her arthritis or overall deconditioning and weakness. She was placed in the hospital under observation, and work-up was performed. CT head did not demonstrate anything acute. Carotid ultrasound demonstrated mild to moderate plaque with no flow-limiting stenosis. Echocardiogram demonstrated preserved ejection fraction, trace tricuspid regurgitation. Telemetry demonstrated sinus rhythm neck with no evidence of atrial fibrillation. MRI was performed demonstrating no CVA. Physical therapy worked with the patient and recommended outpatient therapy and home health for strengthening to reduce falls. I also recommend that she see an eye physician as she reported some diminished peripheral vision. Seroquel was also reduced secondary to concern of balance issues in the patient. Trazodone reduced at all as well to reduce SSRI exposure. Physical Exam Narrative: EXAM NARRATIVE: General exam no distress Neck is supple no lymphadenopathy thyromegaly Cardiovascular regular rate and rhythm without murmur Lungs clear Abdomen is soft with positive bowel sounds Extremities no cyanosis clubbing or edema Discharge Data Data Completed and Pending: Completed Studies During Hospitalization Category Date Time Status CT head wo con* 7 [id number] Stat Cat Scan 01/27/21 08:46 Completed XR chest 1V yuan ble [id number] Stat Exams 01/27/21 07:17 Completed MR head wo/w con [id number] Stat MRI 01/27/21 11:15 Completed CV carotid duplex BI* [id number] Routine Ultrasound 01/28/21 06:00 Completed CV. echo complete * [id number] Routine Ultrasound 01/28/21 06:00 Completed Labs from last 24 hours 01/28/21 01/27/21 04:45 08:25 Triglycerides 169 H Cholesterol 128 LDL Cholesterol, C alc 54 HDL Cholesterol 40 L LDL/HDL Ratio 1.35 Cholesterol/HDL Ra guadalupe 3.20 Vitamin B12 874 Vitals: Last Vital Signs Temp 97.7 F 01/28/21 11:08 Pulse 87 01/28/21 11:08 Resp 18 01/28/21 11:08 BP 121/73 01/28/21 11:08 Pulse Ox 92 01/28/21 11:08 Discharge Plan Discharge Patient Disposition: Home Condition: Stable Prescriptions: New aspirin 81 mg capsule 81 mg PO DAILY Qty: 30 RF: 0 Continued diclofenac sodium [Voltaren Arthritis Pain] 1 % gel 4 g topical QID Qty: 100 RF: 2 Vitamin B-12 1,000 mcg Tablet 2,000 mcg PO BEDTIME RF: 0 Tylenol Ex Str Rapid Release 500 mg Tablet 1,000 mg PO Q4H PRN (Reason: Pain) RF: 0 allopurinol 100 mg tablet 200 mg PO BEDTIME RF: 0 atorvastatin 40 mg tablet 40 mg PO BEDTIME RF: 0 ergocalciferol (vitamin D2) 1,250 mcg (50,000 unit) capsule 1,250 mcg PO Q7D RF: 0 meloxicam 15 mg tablet 15 mg PO DAILY PRN (Reason: Pain) RF: 0 omeprazole 40 mg capsule,delayed release(DR/EC) 40 mg PO BEDTIME RF: 0 gabapentin 300 mg capsule 300 mg PO BEDTIME RF: 0 metoprolol tartrate 25 mg tablet 25 mg PO BEDTIME RF: 0 hydrochlorothiazide 12.5 mg tablet 12.5 mg PO BEDTIME RF: 0 lisinopril 10 mg tablet 10 mg PO BEDTIME RF: 0 lisinopril 20 mg tablet 20 mg PO BEDTIME RF: 0 venlafaxine 150 mg capsule,extended release 24hr 150 mg PO BEDTIME RF: 0 quetiapine 100 mg tablet 100 mg PO BEDTIME RF: 0 trazodone 100 mg tablet 100 mg PO BEDTIME RF: 0 venlafaxine 75 mg tablet extended release 24hr 75 mg PO BEDTIME RF: 0 Discontinued quetiapine 25 mg tablet 25 mg PO BEDTIME RF: 0 trazodone 50 mg Tablet 50 mg PO BEDTIME RF: 0 Discharge Orders: Discharge Order (Routine); Ordered 01/28/21 Ordered By: Caesar Rosenbaum Referrals: Sabi Beckman MD [Primary Care Provider] - 4-7 days Discharge Diet: Cardiac Discharge Activity: Increase activity as tolerated Patient Instructions: Opioid Safety Activity Restrictions/Additional Instructions: Take all medicines as prescribed Return for any concerns. Home health with home physical therapy on discharge. Please schedule optometry or ophthalmology appointment in the next week for evaluation of poor peripheral vision. Discharge Attestations Time Spent in Discharge Care*: greater than 30 min Quality Metrics Clinical Quality Measures During this hospital stay, did patient experience: None Coding Level of Care Code Acute [facility] FW DC note Diagnoses CVA (cerebral vascular accident) I63.9 Recurrent falls R29.6 Memory changes R41.3 Hypertension I10 Hyperlipidemia E78.5 Hyperlipidemia type: unspecified GERD (gastroesophageal reflux disease) K21.9 Esophagitis presence: esophagitis presence not specified Anxiety F41.9
--- NOTE | 2021-01-28 12:08 | PC.NUTR ---
Nutrition consult received for stroke dx, however per rounds this AM, MRI was negative for stroke. Discharge orders noted. Will not complete nutritional assessment at this time.
[2021-01-28 13:38] VITALS: BP 121/73; PULSE 87; RESP 18; TEMP 36.5; O2SAT 92
--- NOTE | 2021-01-28 13:56 | PC.OT ---
OT evaluation orders received. Unable to complete evaluation due to patient discharge.
== END 2021-01-28 13:39 | disposition home or self-care (01) ==
LOC: ER 11:06 → MEDSURG 19:24
PROVIDERS: Admitting Provider Internal Medicine; Emergency Provider Family Medicine; PCP Family Medicine; Visit Provider Internal Medicine
DX: I63.81 Other cerebral infarction due to occlusion or stenosis of small artery (principal); I10 Essential (primary) hypertension; R29.705 NIHSS score 5; E66.9 Obesity, unspecified; Z68.41 Body mass index [BMI] 40.0-44.9, adult; E78.5 Hyperlipidemia, unspecified; F41.9 Anxiety disorder, unspecified; K21.9 Gastro-esophageal reflux disease without esophagitis; R29.6 Repeated falls; R41.3 Other amnesia
CPT/HCPCS: 36415; 70450; 70553; 71045; 80048; 80061; 82607; 85025; 92523; 92610; 93306; 93880; 96372; 96374; 97116; 97162; 99285; A9577; G0378; J1650; J3490

== ENCOUNTER → 2021-03-03 14:24 | Outpatient (BNVA) | payer MEDICARE, OTHER, SELFPAY | PROVIDERS: PCP Family Medicine; Referring Provider Nurse Practitioner Family; Visit Provider Specialist | DX: M17.0 Bilateral primary osteoarthritis of knee (principal) | CPT/HCPCS: 73560; 73565 ==